=== PATIENT | male | born 1980 | race Caucasian/White ===

== ENCOUNTER 2020-07-11 09:42 | Emergency (ER) | payer BC ==
[~2020-07-11] VITALS: Ht 180.3 cm; Wt 127.0 kg
[2020-07-11 09:50] VITALS: BP 132/74
[2020-07-11] MEDS ORDERED: LIDOCAINE 1% VIAL ONE (09:59)
--- NOTE | 2020-07-11 10:12 | ER.PDOC ---
General Chief Complaint: Extremities Stated Complaint: LEFT HAND THUMB AREA LACERATION Time seen by MD: 10:00 Source: patient Exam Limitations: no limitations History of Present Illness Occurred: just prior to arrival Where: work Severity: mild Context: laceration Location of Injury: (L) hand Modifying Factors: pain on movement Allergies: Coded Allergies: Penicillins (Verified Allergy, Unknown, unk, 07/11/20) Reviewed Nursing Reviewed: Vital Signs, Abn. Noted Review of Systems All Other Systems: Reviewed and Negative Physical Exam General Appearance: Alert, No Apparent Distress Hand: see diagram, tenderness 1 - 4 cm lac Neuro: sensation nml, motor nml Vascular: no vascular compromise Tendons: tendon function nml Forearm/Elbow/Arm: uninjured above wrist Skin: warm/dry Head/ENT: nml inspection, pharynx nml Neck/Back: nml inspection, non-tender Resp/CVS: no resp distress, lungs clear, heart sounds nml, reg. rate & rhythm Abdomen: non-tender, no organomegaly ED LACERATION WOUND REPAIR Wound Length (cm): 4 Wound cleaned: betadine Distal NVT: neuro intact, vasc intact Anesthesia type: local Anesthesia: 1% Lidocaine Wound's Depth, Shape: superficial, linear Wound Explored: clean Suture Size/Type: 5:0, prolene Suture Style: simple Results/Orders Results/Orders Orders - OWEN POLANCO MD Diph,Pertmallory(Acell),Tet Vac/Pf (Adacel V (07/11/20 10:30) ER DEPART Departure Time of Disposition: 10:33 Disposition: 01 HOME, SELF-CARE Impression: Primary Impression: Hand laceration Condition: Improved Referrals: PCP,UNKNOWN (PCP) PRIMARY CARE PROVIDER Duration or Time Spent with Pa: 13m OWEN OPLANCO MD Jul 11, 2020 10:12
[2020-07-11] MEDS ORDERED: ADACEL VIAL IM ONE ×2 (10:13→10:30)
[2020-07-11] MEDS ORDERED: TRIPLE ANTIBIOTIC OINTMENT TP ONE (10:21)
== END 2020-07-11 10:35 | disposition home or self-care (01) ==
LOC: ER 09:42
DX: S61.012A Laceration without foreign body of left thumb without damage to nail, initial encounter (principal); Z88.0 Allergy status to penicillin; X58.XXXA Exposure to other specified factors, initial encounter; Y93.89 Activity, other specified; Y92.89 Other specified places as the place of occurrence of the external cause; Y99.0 Civilian activity done for income or pay
CPT/HCPCS: 12002; 90471; 90715; 99284; J2001